=== PATIENT | male | born 1965 | race African-American/Black ===

== ENCOUNTER 2022-12-07 12:39 | Emergency (ER) | payer OTHER ==
[2022-12-07 13:18] LABS: Bilirubin 1+ (Negative); Blood, Urine Negative (Negative); Clarity Slightly Cloudy (Clear); Glucose, Urine (Dipstick) Normal (Negative); Ketone, Urine 5 mg/dL (Negative); Leukocyte 100 (Negative); Nitrite Negative (Negative); Protein, Urine (Dipstick) 30 mg/dl (Neg-Trace)
[2022-12-07 13:41] LABS: RBC/HPF 0-3 HPF (0-3)
[2022-12-07 13:42] LABS: Bacteria/HPF 1+ HPF (None Seen); Mucous/LPF 3+ LPF (<2+)
== END 2022-12-07 15:08 | disposition home or self-care (01) ==
LOC: CSHERS 12:39
DX: N39.0 Urinary tract infection, site not specified (principal); E78.5 Hyperlipidemia, unspecified; I10 Essential (primary) hypertension
CPT/HCPCS: 81003; 81015; 87077; 87086; 87186; 99282